=== PATIENT | male | born 1995 | race Caucasian/White ===

== ENCOUNTER 2018-02-17 13:35 | Emergency (ER) | payer BC ==
[~2018-02-17] VITALS: Ht 172.7 cm; Wt 59.0 kg
[2018-02-17] MEDS ORDERED: PENVK500 PO (14:17)
== END 2018-02-17 14:32 | disposition home or self-care (01) ==
LOC: ER 13:35
DX: J02.0 Streptococcal pharyngitis (principal); Z91.030 Bee allergy status; Z91.048 Other nonmedicinal substance allergy status; F17.200 Nicotine dependence, unspecified, uncomplicated
CPT/HCPCS: 87430; 99283; J1100

== ENCOUNTER 2020-08-14 04:26 | Emergency (ER) | payer OTHER, BC ==
[~2020-08-14] VITALS: Ht 175.3 cm; Wt 59.9 kg
[~2020-08-14 04:26] MED LIST: PENVK500 PO
[2020-08-14] MEDS ORDERED: KETOROLAC TROMET5 ML TOP (04:52)
[2020-08-14] MEDS ORDERED: ERYT.5TO RIGHTEYE (04:52)
== END 2020-08-14 05:14 | disposition home or self-care (01) ==
LOC: ER 04:26
DX: S05.01XA Injury of conjunctiva and corneal abrasion without foreign body, right eye, initial encounter (principal); F17.200 Nicotine dependence, unspecified, uncomplicated; Z91.030 Bee allergy status; Z91.048 Other nonmedicinal substance allergy status; Z92.89 Personal history of other medical treatment; Z99.0 Dependence on aspirator; W22.8XXA Striking against or struck by other objects, initial encounter
CPT/HCPCS: 99283

== ENCOUNTER 2020-10-30 05:13 | Emergency (ER) | payer OTHER, BC ==
[~2020-10-30] VITALS: Ht 175.3 cm; Wt 64.0 kg
[~2020-10-30 05:13] MED LIST changes: +ERYT.5TO RIGHTEYE; +KETOROLAC TROMET5 ML TOP
[2020-10-30 05:42] LABS: Source, Urine Voided
[2020-10-30 05:45] LABS: Bilirubin, Urine Neg (Neg); Blood, Urine Neg (Neg); Glucose Qualitative, Urine Neg (Neg); Ketones, Urine Neg (Neg); Leukocyte Esterase, Urine Neg (Neg); Nitrite, Urine Neg (Neg); Protein, Urine Neg (Neg); Specific Gravity, Urine 1.015 (1.003-1.022); Urobilinogen, Urine NORM (Normal)
[2020-10-30 05:52] LABS: Appearance, Urine Hazy (Clear); Color, Urine Yellow (P-Yellow)
[2020-10-30 05:53] LABS: Amorphous Mod (0-Heavy); Bacteria Not Seen /hpf; Red Blood Cells, Urine Not Seen /hpf (0-2); Squamous Epithelial Cells Not Seen /hpf (Few); White Blood Cells, Urine Not Seen /hpf (0-5)
[2020-10-30 06:06] LABS: BASOPHILS ABSOLUTE AUTO 0.02 K/mm3 (0.00-0.23); BASOPHILS PERCENT AUTO 0 % (0-2); EOSINOPHILS ABSOLUTE AUTO 0.21 K/mm3 (0.00-0.68); EOSINOPHILS PERCENT AUTO 3 % (0-6); Hematocrit 45.6 % (37.0-53.0); Hemoglobin 15.7 g/dL (13.5-17.5); IMMATURE GRAN ABSOLUTE AUTO 0.03 K/mm3 (0.00-0.10); IMMATURE GRAN PERCENT AUTO 1 % (0-1); LYMPHOCYTES ABSOLUTE AUTO 2.23 K/mm3 (0.84-5.20); LYMPHOCYTES PERCENT AUTO 36 % (21-46); MONOCYTES ABSOLUTE AUTO 0.64 K/mm3 (0.16-1.47); MONOCYTES PERCENT AUTO 10 % (4-13); Mean Corpuscular HGB 28.9 pg (26.0-34.0); Mean Corpuscular HGB Conc 34.4 g/dL (31.5-36.5); Mean Corpuscular Volume 84 fL (80-100); Mean Platelet Volume 11.1 fL (9.1-12.4); NEUTROPHILS ABSOLUTE AUTO 3.02 K/mm3 (1.96-9.15); NEUTROPHILS PERCENT AUTO 49 % (41-73); Platelet Count 155 K/mm3 (150-400); RDW Coefficient Variation 12.4 % (11.7-14.2); Red Blood Cell Count 5.43 M/mm3 (4.30-5.90); White Blood Cell Count 6.15 K/mm3 (4.00-11.30)
[2020-10-30 06:26] LABS: Alanine Aminotransfer (ALT/SGP 31 U/L (12-78); Albumin, Blood 3.8 g/dL (3.4-5.0); Albumin/Globulin Ratio 1.1 (0.8-1.8); Alk Phos 109 U/L (50-136); Anion Gap 5 mmol/L (6-16); Aspartate Aminotrans (AST/SGOT 13 U/L (12-37); Bilirubin, Total 0.2 mg/dL (0.1-1.0); Blood Urea Nitrogen 21 mg/dL (8-24); Bun/Creatinine Ratio 26.6 (12.0-20.0); CO2, Blood 28 mmol/L (21-32); Calcium, Blood 9.1 mg/dL (8.5-10.1); Chloride, Blood 112 mmol/L (98-108); Creatinine, Blood 0.79 mg/dL (0.60-1.20); Globulin, Blood 3.4 g/dL (2.2-4.0); Glomerular Filtration Rate >60 (60-); Glucose, Blood 91 mg/dL (70-99); Potassium, Blood 3.9 mmol/L (3.5-5.5); Sodium, Blood 145 mmol/L (136-145); Total Protein, Blood 7.2 g/dL (6.4-8.2)
== END 2020-10-30 08:06 | disposition home or self-care (01) ==
LOC: ER 05:13
PROVIDERS: Emergency Medicine
DX: R10.30 Lower abdominal pain, unspecified (principal); F17.210 Nicotine dependence, cigarettes, uncomplicated; Z91.030 Bee allergy status; Z91.048 Other nonmedicinal substance allergy status
CPT/HCPCS: 36415; 74177; 80053; 81001; 83690; 85025; 96361; 96374; 96375; 99284-25; J2405; J3010; J7030; Q9967

== ENCOUNTER 2020-10-31 04:32 | Emergency (ER) | payer OTHER, BC ==
[~2020-10-31] VITALS: Ht 175.3 cm; Wt 64.4 kg
== END 2020-10-31 05:23 | disposition home or self-care (01) ==
LOC: ER 04:32
DX: K59.00 Constipation, unspecified (principal); F17.200 Nicotine dependence, unspecified, uncomplicated; Z91.030 Bee allergy status
CPT/HCPCS: 99283; A9270

== ENCOUNTER 2020-12-05 01:27 | Emergency (ER) | payer OTHER, BC ==
[~2020-12-05] VITALS: Ht 175.3 cm; Wt 65.8 kg
== END 2020-12-05 05:01 | disposition left against medical advice (07) ==
LOC: ER 01:27
DX: Z53.21 Procedure and treatment not carried out due to patient leaving prior to being seen by health care provider (principal)

== ENCOUNTER 2021-02-09 02:20 | Emergency (ER) | payer OTHER, BC ==
[~2021-02-09] VITALS: Ht 175.3 cm; Wt 64.0 kg
== END 2021-02-09 03:18 | disposition left against medical advice (07) ==
LOC: ER 02:20
DX: Z53.21 Procedure and treatment not carried out due to patient leaving prior to being seen by health care provider (principal)

== ENCOUNTER 2021-02-10 22:58 | Emergency (ER) | payer OTHER, BC ==
[~2021-02-10] VITALS: Ht 175.3 cm; Wt 64.0 kg
== END 2021-02-11 01:10 | disposition home or self-care (01) ==
LOC: ER 22:58
DX: S00.83XA Contusion of other part of head, initial encounter (principal); F17.200 Nicotine dependence, unspecified, uncomplicated; Z91.048 Other nonmedicinal substance allergy status; Z91.030 Bee allergy status; W51.XXXA Accidental striking against or bumped into by another person, initial encounter
CPT/HCPCS: 70110; 99283-25

== ENCOUNTER 2021-03-17 23:45 | Emergency (ER) | payer OTHER, BC ==
[~2021-03-17] VITALS: Ht 175.3 cm; Wt 65.8 kg
== END 2021-03-18 03:42 | disposition left against medical advice (07) ==
LOC: ER 23:45
DX: R51.9 Headache, unspecified (principal); R10.9 Unspecified abdominal pain; H57.10 Ocular pain, unspecified eye; Z53.21 Procedure and treatment not carried out due to patient leaving prior to being seen by health care provider

== ENCOUNTER 2022-01-21 01:55 | Emergency (ER) | payer BC ==
[~2022-01-21] VITALS: Ht 170.2 cm; Wt 59.0 kg
[2022-01-21] MEDS ORDERED: CYCL10 PO (02:33)
[2022-01-21] MEDS ORDERED: IBU600 MG PO (02:33)
== END 2022-01-21 02:52 | disposition home or self-care (01) ==
LOC: ER 01:55
DX: M54.50 Low back pain, unspecified (principal); G89.29 Other chronic pain; F17.200 Nicotine dependence, unspecified, uncomplicated; Z91.038 Other insect allergy status; Z91.048 Other nonmedicinal substance allergy status; Z79.899 Other long term (current) drug therapy
CPT/HCPCS: A9270

== ENCOUNTER 2022-07-09 02:13 | Emergency (ER) | payer OTHER, BC ==
[~2022-07-09] VITALS: Ht 175.3 cm; Wt 65.8 kg
[~2022-07-09 02:13] MED LIST changes: +CYCL10 PO; +IBU600 MG PO
== END 2022-07-09 04:39 | disposition home or self-care (01) ==
LOC: ER 02:13
DX: S05.02XA Injury of conjunctiva and corneal abrasion without foreign body, left eye, initial encounter (principal); W26.8XXA Contact with other sharp object(s), not elsewhere classified, initial encounter; F17.210 Nicotine dependence, cigarettes, uncomplicated
CPT/HCPCS: A9270

== ENCOUNTER → 2022-07-21 | Outpatient (CLI) | payer BC | END | disposition home or self-care (01) | LOC: LAB SHORT 09:33 | DX: R07.9 Chest pain, unspecified (principal) | CPT/HCPCS: 82550 ==

== ENCOUNTER 2022-07-28 21:38 | Emergency (ER) | payer BC ==
[~2022-07-28] VITALS: Ht 175.3 cm; Wt 68.0 kg
[2022-07-30] MEDS ORDERED: CYCL10 PO (19:24)
== END 2022-07-29 00:05 | disposition home or self-care (01) ==
LOC: ER 21:38
DX: J06.9 Acute upper respiratory infection, unspecified (principal); Z91.038 Other insect allergy status; Z91.048 Other nonmedicinal substance allergy status; F17.200 Nicotine dependence, unspecified, uncomplicated
CPT/HCPCS: A9270

== ENCOUNTER 2022-07-30 18:50 | Emergency (ER) | payer OTHER, BC ==
[~2022-07-30] VITALS: Ht 175.3 cm; Wt 67.0 kg
[2022-07-30] MEDS ORDERED: CYCL10 PO (19:24)
== END 2022-07-30 19:30 | disposition home or self-care (01) ==
LOC: ER 18:50
DX: S13.9XXA Sprain of joints and ligaments of unspecified parts of neck, initial encounter (principal); S23.3XXA Sprain of ligaments of thoracic spine, initial encounter; F17.200 Nicotine dependence, unspecified, uncomplicated; V57.5XXA Driver of pick-up truck or van injured in collision with fixed or stationary object in traffic accident, initial encounter
CPT/HCPCS: 99282

== ENCOUNTER 2024-05-20 23:16 | Emergency (ER) | payer OTHER ==
[~2024-05-20] VITALS: Ht 175.3 cm; Wt 70.3 kg
[2024-05-20 23:49] VITALS: BP 133/95
[2024-05-21] MEDS ORDERED: Diphth,Pertuss(Acell),Tet Vac 0.5 ML VIAL IM ONE ×2 (00:10→00:20)
== END 2024-05-21 00:45 | disposition home or self-care (01) ==
LOC: ER 23:16
DX: S06.0X0A Concussion without loss of consciousness, initial encounter (principal); S01.01XA Laceration without foreign body of scalp, initial encounter; W22.8XXA Striking against or struck by other objects, initial encounter; F17.200 Nicotine dependence, unspecified, uncomplicated; Z88.5 Allergy status to narcotic agent; Z91.030 Bee allergy status; Z91.048 Other nonmedicinal substance allergy status
CPT/HCPCS: 12001; 90471; 90715; 99283-25

== ENCOUNTER → 2025-06-20 | Outpatient (CLI) | payer OTHER | END | disposition home or self-care (01) | LOC: LAB 09:06 → LAB SHORT 09:06 | DX: R82.90 Unspecified abnormal findings in urine (principal) | CPT/HCPCS: 87086 ==